=== PATIENT | female | born 1955 | race Caucasian/White ===

== ENCOUNTER 2016-12-12 20:17 | Emergency (ER) | payer BC ==
[2016-12-12] MEDS ORDERED: Morphine 10 MG/ML VIAL ONE ×3 (21:06→23:40)
[2016-12-12] MEDS ORDERED: diphenhydrAMINE 50 MG/ML VIAL ONE (21:06)
--- NOTE | 2016-12-12 21:29 | RAD ---
THREE VIEWS OF THE RIGHT ANKLE 12/12/16 COMPARISON: None. HISTORY: Fall, twisting injury. FINDINGS: There is lateral soft tissue swelling, most prominent distal to the tip of the lateral malleolus. A transverse fracture is seen in the region of the talocalcaneal joint laterally. This may represent t he calcaneus anteriorly in the region of the anterior articular facet of the calcaneus. There is no evidence for dislocation. IMPRESSION: Lateral soft tissue swelling with fracture in the region of the lateral aspect of talus and/or dista l aspect of calcaneus. Recommend orthopedic consultation. A CT examination of the foot/ankle is advi sed as well to evaluate for suspected fractures of the talus and calcaneus. POS: OK
--- NOTE | 2016-12-12 21:31 | RAD ---
THREE VIEWS RIGHT FOOT: 12/12/16 COMPARISON: None. HISTORY: Fall, trauma, pain. FINDINGS: The oblique image demonstrates a fracture which appears to be in the region of the calcaneus, either the middle or the anterior facet, extending into the region of the talocalcaneal joint. There is en thesophyte formation at the origin of the plantar aponeurosis. No evidence for dislocation is seen. IMPRESSION: Intra-articular fracture deformity involving the subtalar joint. Orthopedic consultation and CT exam ination suggested. Code T POS: OK
[2016-12-12] MEDS ORDERED: Ketorolac Tromethamine 30 MG/ML VIAL ONE (21:47)
--- NOTE | 2016-12-12 22:58 | CT ---
CT OF THE RIGHT FOOT 12/12/16 COMPARISON: None. HISTORY: Trauma, pain, assess fracture deformity identified on recent radiograph. TECHNIQUE: Serial axial CT imaging is obtained at 1.25 mm intervals through the right foot and ankle without co ntrast. Coronal and sagittal reformatted imaging obtained. FINDINGS: The imaged aspects of the tibia and fibula are unremarkable. There is no evidence for ankle joint di slocation. There is a comminuted minimally displaced horizontally oriented transverse fracture involving the ta ramila centrally and laterally, at the base of the lateral process, just distal to the articular surfac e for the lateral malleolus. This fracture extends into the talocalcaneal articulation. In addition, there is a comminuted fracture involving the calcaneus laterally, demonstrating a horiz ontal component which extends into the articulation with the cuboid. There is also a component which extends into the anterior aspect of the subtalar joint/talocalcaneal articulation, extending into t he region of the anterior talar articular surface. There is no evidence for discrete fracture of the cuboid, navicular bone, or the cuneiforms. No meta tarsal fracture or phalangeal fracture identified. IMPRESSION: Fracture deformities involving the calcaneus and talus as detailed above. orthopedic consultation is advised. POS: OK
== END 2016-12-13 00:03 | disposition short-term general hospital (02) ==
LOC: MADERS 20:17
DX: S92.141A Displaced dome fracture of right talus, initial encounter for closed fracture (principal); S92.061A Displaced intraarticular fracture of right calcaneus, initial encounter for closed fracture; I25.2 Old myocardial infarction; K21.9 Gastro-esophageal reflux disease without esophagitis; F41.9 Anxiety disorder, unspecified; F32.9 Major depressive disorder, single episode, unspecified; Z87.01 Personal history of pneumonia (recurrent); Z86.14 Personal history of Methicillin resistant Staphylococcus aureus infection; W19.XXXA Unspecified fall, initial encounter; Y93.79 Activity, other specified sports and athletics
CPT/HCPCS: 29515; 96374; 96375; 96376; J1200; J1885; J2270

== ENCOUNTER 2017-02-15 22:17 | Emergency (ER) | payer BC ==
[~2017-02-15 22:17] MED LIST: Dextrose 5 %-0.45 % NaCl 1000 ml Bag ONE
[2017-02-15] MEDS ORDERED: Lorazepam 2 MG/ML VIAL ONE (22:48)
[2017-02-15] MEDS ORDERED: Multivit, Adult Inj 10 ML VIAL ONE (22:48)
[2017-02-15] MEDS ORDERED: Ondansetron HCl/PF 4 MG/2 ML Vial ONE (22:48)
[2017-02-15] MEDS ORDERED: Thiamine HCl 200 MG/2 ML VIAL ONE (22:48)
[2017-02-15] MEDS ORDERED: Ketorolac Tromethamine 30 MG/ML VIAL ONE (22:48)
[2017-02-16 00:26] LABS: Hemoglobin 10.9 g/dL (12.0-16.0); Mean Corpuscular Volume 97.4 fL (81.0-99.0); Red Blood Cell (RBC) Count 3.39 mill/uL (4.20-5.40); White Blood Cell (WBC) Count 6.6 thou/uL (4.8-10.8)
[2017-02-16 00:27] LABS: #Eosinphils 0.1 thou/uL (0.0-0.7); #Monocytes 0.5 thou/uL (0.11-0.59); %Basophils 0.7 % (0.0-1.0); %Eosinophils 1.1 % (0.0-10.0); %Lymphocytes 30.2 % (21.0-51.0); %Monocytes 7.1 % (0.0-10.0); %Neutrophils 60.9 % (42.0-75.0); Manual Diff?? NO; Mean Corpuscular HGB CONC 32.9 g/dL (32.0-36.0); Mean Corpuscular Hemoglobin 32.1 pg (27.0-31.0); Mean Platelet Volume 7.9 fL (7.4-10.4); Platelet Count 161 thou/uL (130-400); RBC Distribution Width 14.1 % (11.5-14.5)
[2017-02-16 00:46] LABS: ALT (SGPT) 15 U/L (8-55); AST (SGOT) 14 U/L (5-34); Albumin 3.2 g/dL (3.5-5.0); Alkaline Phosphatase 198 U/L (40-150); Anion Gap 14 mmol/L (10-20); BUN (Urea Nitrogen) 14 mg/dL (9.8-20.1); Bilirubin, Total 0.2 mg/dL (0.2-1.2); CK (CPK) 26 U/L (29-168); Calc. Creatinine Clearance 0 mL/min (70-130); Calcium 7.8 mg/dL (7.8-10.44); Carbon Dioxide 19 mmol/L (22-29); Chloride 110 mmol/L (98-107); Estimated GFR-MDRD 78; Globulin 2.1 g/dL (2.4-3.5); Glucose 324 mg/dL (70-105); Potassium 3.5 mmol/L (3.5-5.1); Protein, Total 5.3 g/dL (6.0-8.3); Sodium 139 mmol/L (136-145)
== END 2017-02-16 02:30 | disposition home or self-care (01) ==
LOC: MADERS 22:17
DX: M62.838 Other muscle spasm (principal); I25.2 Old myocardial infarction; F41.9 Anxiety disorder, unspecified; F32.9 Major depressive disorder, single episode, unspecified; K21.9 Gastro-esophageal reflux disease without esophagitis
CPT/HCPCS: 36415; 80053; 82550; 83880; 85025; 93005; 96365; 96375; J1885; J2060; J2405; J3411; J7042

== ENCOUNTER 2019-02-09 11:53 | Emergency (ER) | payer BC | END 2019-02-09 13:09 | disposition home or self-care (01) | LOC: MADERS 11:53 | DX: J11.1 Influenza due to unidentified influenza virus with other respiratory manifestations (principal); I25.2 Old myocardial infarction; K21.9 Gastro-esophageal reflux disease without esophagitis; F32.9 Major depressive disorder, single episode, unspecified; F41.9 Anxiety disorder, unspecified; F43.10 Post-traumatic stress disorder, unspecified | CPT/HCPCS: 99283 ==

== ENCOUNTER 2020-10-18 16:18 | Emergency (ER) | payer BC | END 2020-10-18 18:03 | disposition home or self-care (01) | LOC: MADERS 16:18 | DX: U07.1 COVID-19 (principal); I25.2 Old myocardial infarction; K21.9 Gastro-esophageal reflux disease without esophagitis; Z79.899 Other long term (current) drug therapy | CPT/HCPCS: 99283 ==

== ENCOUNTER 2020-11-18 12:28 | Emergency (ER) | payer BC ==
[2020-11-18] MEDS ORDERED: Gabapentin 100 MG CAP ONE (12:49)
[2020-11-18] MEDS ORDERED: Acetaminophen 500 MG TAB ONE (12:49)
== END 2020-11-18 12:55 | disposition home or self-care (01) ==
LOC: MADERS 12:28
DX: M79.671 Pain in right foot (principal); M79.672 Pain in left foot; I25.2 Old myocardial infarction
CPT/HCPCS: 99283

== ENCOUNTER 2021-05-29 08:03 | Emergency (ER) | payer BC ==
[2021-05-29] MEDS ORDERED: HYDROcodone/Acetaminophen 10/325 mg Tablet ONE (09:32)
== END 2021-05-29 09:43 | disposition home or self-care (01) ==
LOC: MADERS 08:03
DX: S82.831A Other fracture of upper and lower end of right fibula, initial encounter for closed fracture (principal); I25.2 Old myocardial infarction; K21.9 Gastro-esophageal reflux disease without esophagitis; W54.1XXA Struck by dog, initial encounter

== ENCOUNTER 2021-06-23 10:29 | Emergency (ER) | payer BC ==
[2021-06-23 11:13] LABS: INR-International Normal Ratio 0.9; Prothrombin Time 12.7 sec (12.0-14.7)
[2021-06-23 11:14] LABS: PTT 31.3 sec (22.9-36.1)
[2021-06-23 11:16] LABS: Hypochromia SLIGHT = 6-15 cells (100X) (0-5/hpf); Lymphocytes 24 % (21-51); MDiff Complete? YES; Mean Corpuscular HGB CONC 31.9 g/dL (32.0-36.0); Mean Corpuscular Hemoglobin 31.3 pg (27.0-31.0); Mean Corpuscular Volume 98.2 fL (78.0-98.0); Mean Platelet Volume 9.4 fL (7.4-10.4); Monocytes 9 % (0-10); Neutrophil 67 % (42-75); Platelet Count 227 thou/uL (130-400); Platelet Morphology Comment Appears Adequate; RBC Distribution Width 12.9 % (11.5-14.5); Red Blood Cell (RBC) Count 3.84 mill/uL (4.20-5.40); White Blood Cell (WBC) Count 7.9 thou/uL (4.8-10.8)
[2021-06-23] MEDS ORDERED: diphenhydrAMINE 50 MG/ML VIAL ONE (11:20)
[2021-06-23] MEDS ORDERED: methylPREDNISolone Sod Succ/PF 125 MG/2 ML VIAL ONE (11:20)
[2021-06-23] MEDS ORDERED: Famotidine/PF 20 mg/2ml Vial ONE (11:20)
[2021-06-23 11:28] LABS: ALT (SGPT) 11 U/L (8-55); AST (SGOT) 19 U/L (5-34); Albumin 4.1 g/dL (3.4-4.8); Alkaline Phosphatase 210 U/L (40-110); Anion Gap 17 mmol/L (10-20); BUN (Urea Nitrogen) 13 mg/dL (9.8-20.1); Bilirubin, Total 0.3 mg/dL (0.2-1.2); Calc. Creatinine Clearance 0 mL/min (70-130); Calcium 8.7 mg/dL (7.8-10.44); Carbon Dioxide 20 mmol/L (23-31); Chloride 109 mmol/L (98-107); Globulin 2.4 g/dL (2.4-3.5); Glucose 111 mg/dL (80-115); Potassium 3.9 mmol/L (3.5-5.1); Protein, Total 6.5 g/dL (5.8-8.1); Sodium 142 mmol/L (136-145)
[2021-06-23 11:53] LABS: CKMB 1.9 ng/mL (0-6.6)
== END 2021-06-23 11:33 | disposition short-term general hospital (02) ==
LOC: MADERS 10:29
DX: R53.1 Weakness (principal); I25.2 Old myocardial infarction; K21.9 Gastro-esophageal reflux disease without esophagitis
CPT/HCPCS: 51702; 70450; 80053; 82553; 84484; 85025; 85610; 85730; 93005; 96374; 96375; J1200; J2930; S0028

== ENCOUNTER 2022-03-28 00:40 | Emergency (ER) | payer BC, MEDICARE ==
[2022-03-28 01:42] LABS: #Basophils 0.1 thou/uL (0.0-0.2); #Eosinphils 0.1 thou/uL (0.0-0.7); #Lymphocytes 2.1 thou/uL (1.20-3.40); #Monocytes 0.6 thou/uL (0.11-0.59); #Neutrophils 2.9 thou/uL (1.40-6.50); %Basophils 1.1 % (0.0-1.0); %Lymphocytes 36.6 % (21.0-51.0); %Monocytes 9.7 % (0.0-10.0); %Neutrophils 50.6 % (42.0-75.0); Hemoglobin 11.5 g/dL (12.0-16.0); Mean Corpuscular HGB CONC 33.5 g/dL (32.0-36.0); Mean Corpuscular Hemoglobin 32.1 pg (27.0-31.0); Mean Corpuscular Volume 95.7 fl (78.0-98.0); Mean Platelet Volume 8.3 fL (7.4-10.4); Platelet Count 167 10x3/uL (130-400); RBC Distribution Width 11.1 % (11.5-14.5); Red Blood Cell (RBC) Count 3.59 mill/uL (4.20-5.40); White Blood Cell (WBC) Count 5.8 10x3/uL (4.8-10.8)
[2022-03-28 01:52] LABS: Bilirubin Negative (Negative); Blood, Urine Negative (Negative); Clarity Clear (Clear); Glucose, Urine (Dipstick) Negative (Negative); Ketone, Urine Negative (Negative); Leukocyte Negative (Negative); Nitrite Negative (Negative); Protein, Urine (Dipstick) Negative (Neg-Trace); Urobilinogen 0.2 mg/dL (Less than 2)
[2022-03-28 01:55] LABS: Anion Gap 14 mmol/L (10-20); BUN (Urea Nitrogen) 20 mg/dL (9.8-20.1); Calc. Creatinine Clearance 0 mL/min (70-130); Calcium 9.3 mg/dL (7.8-10.44); Carbon Dioxide 26 mmol/L (23-31); Chloride 103 mmol/L (98-107); Estimated GFR 88; Glucose 74 mg/dL (80-115); Potassium 4.3 mmol/L (3.5-5.1); Sodium 139 mmol/L (136-145)
== END 2022-03-28 03:05 | disposition home or self-care (01) ==
LOC: MADERS 00:40
DX: R33.9 Retention of urine, unspecified (principal); K21.9 Gastro-esophageal reflux disease without esophagitis
CPT/HCPCS: 36416; 51702; 80048; 81003; 83605; 85025; 87040; 87086

== ENCOUNTER 2022-04-05 16:31 | Emergency (ER) | payer BC, MEDICARE ==
[2022-04-05 17:31] LABS: Bilirubin Negative (Negative); Blood, Urine Moderate (Negative); Glucose, Urine (Dipstick) Negative (Negative); Ketone, Urine Negative (Negative); Leukocyte Moderate (Negative); Nitrite Positive (Negative); Protein, Urine (Dipstick) Negative (Neg-Trace); Urobilinogen 0.2 mg/dL (Less than 2)
[2022-04-05 17:34] LABS: Clarity Hazy (Clear)
[2022-04-05 17:41] LABS: Bacteria/HPF 1+ HPF (None Seen); Squamous Epithelial 0-3 HPF (0-3); WBC/HPF 21-50 HPF (0-3)
[2022-04-05] MEDS ORDERED: cefTRIAXone\\ROCEPHIN 1 GM VIAL ONE (18:39)
[2022-04-05] MEDS ORDERED: Lidocaine 1% PF 5 ML VIAL ONE (18:39)
== END 2022-04-05 19:09 | disposition home or self-care (01) ==
LOC: MADERS 16:31
DX: N39.0 Urinary tract infection, site not specified (principal); K21.9 Gastro-esophageal reflux disease without esophagitis
CPT/HCPCS: 51702; 81003; 81015; 87077; 87086; 87186; 96372; J0696

== ENCOUNTER 2022-04-10 15:04 | Emergency (ER) | payer BC, MEDICARE ==
[2022-04-10] MEDS ORDERED: HYDROcodone/Acetaminophen 10/325 mg Tablet ONE (16:07)
[2022-04-10 16:44] LABS: #Basophils 0.1 thou/uL (0.0-0.2); #Eosinphils 0.1 thou/uL (0.0-0.7); #Lymphocytes 2.6 thou/uL (1.20-3.40); #Monocytes 0.4 thou/uL (0.11-0.59); #Neutrophils 4.1 thou/uL (1.40-6.50); %Eosinophils 1.6 % (0.0-10.0); %Lymphocytes 35.4 % (21.0-51.0); Mean Corpuscular Hemoglobin 32.3 pg (27.0-31.0); Mean Corpuscular Volume 95.1 fl (78.0-98.0); Mean Platelet Volume 7.2 fL (7.4-10.4); Platelet Count 242 10x3/uL (130-400); RBC Distribution Width 11.5 % (11.5-14.5); Red Blood Cell (RBC) Count 3.41 mill/uL (4.20-5.40); White Blood Cell (WBC) Count 7.2 10x3/uL (4.8-10.8)
[2022-04-10 17:01] LABS: ALT (SGPT) 22 U/L (8-55); AST (SGOT) 19 U/L (5-34); Albumin 3.9 g/dL (3.4-4.8); Alkaline Phosphatase 162 U/L (40-110); Anion Gap 12 mmol/L (10-20); BUN (Urea Nitrogen) 16 mg/dL (9.8-20.1); Bilirubin, Total 0.2 mg/dL (0.2-1.2); Calc. Creatinine Clearance 0 mL/min (70-130); Calcium 8.8 mg/dL (7.8-10.44); Carbon Dioxide 25 mmol/L (23-31); Chloride 108 mmol/L (98-107); Estimated GFR 82; Globulin 2.2 g/dL (2.4-3.5); Glucose 89 mg/dL (80-115); Lipase 22 U/L (8-78); Protein, Total 6.1 g/dL (5.8-8.1); Sodium 141 mmol/L (136-145)
[2022-04-10 17:34] LABS: Bilirubin Negative (Negative); Blood, Urine Large (Negative); Glucose, Urine (Dipstick) 100 mg/dL (Negative); Ketone, Urine Negative (Negative); Leukocyte Trace (Negative); Nitrite Positive (Negative); Protein, Urine (Dipstick) 30 mg/dL (Neg-Trace); pH, Urine 5.5 (5.0-9.0)
[2022-04-10 17:40] LABS: Bacteria/HPF 1+ HPF (None Seen); Clarity Slightly Cloudy (Clear); RBC/HPF Greater than 50 HPF (0-3); Squamous Epithelial 0-3 HPF (0-3)
[2022-04-10] MEDS ORDERED: Fentanyl 100 MCG/2 ML VIAL ONE (18:32)
[2022-04-10] MEDS ORDERED: Sodium Chloride 0.9% 100 ML ONE (18:32)
[2022-04-10] MEDS ORDERED: cefTRIAXone\\ROCEPHIN 2 GM VIAL ONE (18:32)
== END 2022-04-10 18:57 | disposition home or self-care (01) ==
LOC: MADERS 15:04
DX: N39.0 Urinary tract infection, site not specified (principal); K21.9 Gastro-esophageal reflux disease without esophagitis
CPT/HCPCS: 80053; 81003; 81015; 83605; 83690; 85025; 87086; 96374; 96375; J0696; J3010; J3490

== ENCOUNTER 2022-05-23 08:22 | Emergency (ER) | payer BC, MEDICARE | END 2022-05-23 09:35 | disposition home or self-care (01) | LOC: MADERS 08:22 | DX: S62.511A Displaced fracture of proximal phalanx of right thumb, initial encounter for closed fracture (principal); K21.9 Gastro-esophageal reflux disease without esophagitis; N39.0 Urinary tract infection, site not specified; W23.0XXA Caught, crushed, jammed, or pinched between moving objects, initial encounter ==

== ENCOUNTER 2022-10-15 21:46 | Emergency (ER) | payer BC, MEDICARE, OTHER ==
[2022-10-15] MEDS ORDERED: Lidocaine 4% Cream 5 GM TUBE w/ Tegaderm ONE (22:36)
[2022-10-15] MEDS ORDERED: Morphine 4 MG/ML VIAL ONE (22:53)
[2022-10-15] MEDS ORDERED: Sodium Chloride 0.9% 1,000 ML ONE (22:53)
[2022-10-15 23:10] LABS: #Eosinphils 0.1 thou/uL (0.0-0.7); #Monocytes 0.6 thou/uL (0.11-0.59); #Neutrophils 5.9 thou/uL (1.40-6.50); %Basophils 0.5 % (0.0-1.0); %Eosinophils 0.9 % (0.0-10.0); %Lymphocytes 23.3 % (21.0-51.0); %Neutrophils 68.3 % (42.0-75.0); Hematocrit 29.7 % (36.0-47.0); Hemoglobin 9.7 g/dL (12.0-16.0); Mean Corpuscular HGB CONC 32.7 g/dL (32.0-36.0); Mean Corpuscular Hemoglobin 32.6 pg (27.0-31.0); Mean Corpuscular Volume 99.8 fl (78.0-98.0); Mean Platelet Volume 9.1 fL (7.4-10.4); Platelet Count 163 10x3/uL (130-400); RBC Distribution Width 12.7 % (11.5-14.5); Red Blood Cell (RBC) Count 2.97 mill/uL (4.20-5.40); White Blood Cell (WBC) Count 8.7 10x3/uL (4.8-10.8)
[2022-10-15 23:24] LABS: ALT (SGPT) 17 U/L (8-55); AST (SGOT) 25 U/L (5-34); Albumin 3.4 g/dL (3.4-4.8); Alkaline Phosphatase 140 U/L (40-110); Anion Gap 12 mmol/L (10-20); BUN (Urea Nitrogen) 11 mg/dL (9.8-20.1); Bilirubin, Total Less than 0.2 mg/dL (0.2-1.2); Calc. Creatinine Clearance 0 mL/min (70-130); Carbon Dioxide 21 mmol/L (23-31); Chloride 112 mmol/L (98-107); Estimated GFR 98; Globulin 2.1 g/dL (2.4-3.5); Glucose 66 mg/dL (80-115); Protein, Total 5.5 g/dL (5.8-8.1); Sodium 141 mmol/L (136-145)
[2022-10-15 23:30] LABS: Troponin I 0.016 ng/mL (< 0.028)
[2022-10-15 23:49] LABS: Bilirubin Negative (Negative); Blood, Urine Negative (Negative); CAUTI Indications for Culture Acute Hematuria; Clarity Clear (Clear); Glucose, Urine (Dipstick) Negative (Negative); Ketone, Urine Negative (Negative); Leukocyte Negative (Negative); Nitrite Negative (Negative); Protein, Urine (Dipstick) Negative (Neg-Trace); RBC/HPF None Seen HPF (0-3); Squamous Epithelial 0-3 HPF (0-3); Urobilinogen 0.2 mg/dL (Less than 2); WBC/HPF None Seen HPF (0-3)
[2022-10-15 23:50] LABS: Urine Culture Reflex No No
[2022-10-16] MEDS ORDERED: Boostrix 0.5 ML (Tdap) VIAL (>/=7 yrs of age) ONE (00:51)
[2022-10-16] MEDS ORDERED: HYDROcodone/Acetaminophen 5/325 mg Tablet ONE (00:51)
== END 2022-10-16 01:22 | disposition home or self-care (01) ==
LOC: MADERS 21:46
DX: S06.9X9A Unspecified intracranial injury with loss of consciousness of unspecified duration, initial encounter (principal); S05.42XA Penetrating wound of orbit with or without foreign body, left eye, initial encounter; R33.9 Retention of urine, unspecified; K21.9 Gastro-esophageal reflux disease without esophagitis; Z79.899 Other long term (current) drug therapy; Z23 Encounter for immunization; W19.XXXA Unspecified fall, initial encounter
CPT/HCPCS: 51702; 51798; 70450; 70486; 71045; 72125; 80053; 81001; 84484; 85025; 90471; 90715; 93005; 96374; J2270; J7050

== ENCOUNTER 2022-11-11 11:13 | Emergency (ER) | payer BC, MEDICARE ==
[2022-11-11] MEDS ORDERED: Morphine 4 MG/ML VIAL ONE (11:42)
[2022-11-11] MEDS ORDERED: diphenhydrAMINE 50 MG/ML VIAL ONE (11:42)
[2022-11-11 12:03] LABS: #Basophils 0.1 thou/uL (0.0-0.2); #Eosinphils 0.1 thou/uL (0.0-0.7); #Lymphocytes 2.4 thou/uL (1.20-3.40); #Monocytes 0.5 thou/uL (0.11-0.59); %Eosinophils 1.4 % (0.0-10.0); %Lymphocytes 30.1 % (21.0-51.0); %Monocytes 5.8 % (0.0-10.0); %Neutrophils 61.8 % (42.0-75.0); Hematocrit 35.5 % (36.0-47.0); Hemoglobin 11.2 g/dL (12.0-16.0); Mean Corpuscular HGB CONC 31.6 g/dL (32.0-36.0); Mean Corpuscular Hemoglobin 31.3 pg (27.0-31.0); Mean Platelet Volume 8.8 fL (7.4-10.4); Platelet Count 184 10x3/uL (130-400); RBC Distribution Width 12.9 % (11.5-14.5); Red Blood Cell (RBC) Count 3.59 mill/uL (4.20-5.40); White Blood Cell (WBC) Count 8.1 10x3/uL (4.8-10.8)
[2022-11-11 12:22] LABS: ALT (SGPT) 19 U/L (8-55); AST (SGOT) 23 U/L (5-34); Albumin 3.7 g/dL (3.4-4.8); Alkaline Phosphatase 167 U/L (40-110); Anion Gap 11 mmol/L (10-20); BUN (Urea Nitrogen) 12 mg/dL (9.8-20.1); Bilirubin, Total 0.2 mg/dL (0.2-1.2); Calc. Creatinine Clearance 0 mL/min (70-130); Calcium 8.4 mg/dL (7.8-10.44); Carbon Dioxide 26 mmol/L (23-31); Chloride 108 mmol/L (98-107); Estimated GFR 96; Globulin 2.2 g/dL (2.4-3.5); Glucose 88 mg/dL (80-115); Potassium 4.1 mmol/L (3.5-5.1); Protein, Total 5.9 g/dL (5.8-8.1); Sodium 141 mmol/L (136-145)
[2022-11-11 12:23] LABS: Troponin I Less than 0.010 ng/mL (< 0.028)
[2022-11-11] MEDS ORDERED: Methocarbamol 500 MG TAB ONE (13:06)
[2022-11-11] MEDS ORDERED: Thiamine HCl 200 MG/2 ML VIAL ONE (13:09)
[2022-11-11] MEDS ORDERED: Midazolam HCl 2 mg/2 ml Vial ONE (13:09)
[2022-11-11] MEDS ORDERED: Morphine 2 MG/ML VIAL ONE (14:07)
== END 2022-11-11 14:50 | disposition home or self-care (01) ==
LOC: MADERS 11:13
DX: M62.838 Other muscle spasm (principal); R07.9 Chest pain, unspecified; K21.9 Gastro-esophageal reflux disease without esophagitis; Z79.899 Other long term (current) drug therapy
CPT/HCPCS: 71045; 80053; 83880; 84484; 85025; 85379; 93005; 94760; 96374; 96375; 96376; J1200; J2250; J2270; J2272; J3411

== ENCOUNTER 2023-02-05 05:01 | Emergency (ER) | payer OTHER, BC, MEDICARE ==
[2023-02-05] MEDS ORDERED: traMADol HCl 50 MG TAB ONE (05:19)
== END 2023-02-05 05:34 | disposition home or self-care (01) ==
LOC: MADERS 05:01
DX: S73.101A Unspecified sprain of right hip, initial encounter (principal); W01.0XXA Fall on same level from slipping, tripping and stumbling without subsequent striking against object, initial encounter

== ENCOUNTER 2024-02-06 14:21 | Emergency (ER) | payer BC, MEDICARE | END 2024-02-06 16:24 | disposition left against medical advice (07) | LOC: MADERS 14:21 | DX: Z53.21 Procedure and treatment not carried out due to patient leaving prior to being seen by health care provider (principal) ==

== ENCOUNTER 2024-09-12 08:17 | Outpatient (CLI) | payer BC, MEDICARE ==
[2024-09-12 09:03] LABS: #Basophils 0.1 thou/uL (0.0-0.2); #Eosinophils 0.2 thou/uL (0.0-0.7); #Lymphocytes 1.8 thou/uL (1.20-3.40); #Monocytes 0.3 thou/uL (0.11-0.59); #Neutrophils 3.3 thou/uL (1.40-6.50); %Basophils 0.9 % (0.0-1.0); %Eosinophils 2.9 % (0.0-10.0); %Lymphocytes 32.3 % (21.0-51.0); %Monocytes 5.9 % (0.0-10.0); %Neutrophils 58.0 % (42.0-75.0); Hematocrit 37.1 % (36.0-47.0); Hemoglobin 12.0 g/dL (12.0-16.0); Mean Corpuscular Hemoglobin 31.2 pg (27.0-31.0); Mean Corpuscular Volume 96.5 fl (78.0-98.0); Platelet Count 217 10x3/uL (130-400); Red Blood Cell (RBC) Count 3.84 mill/uL (4.20-5.40); White Blood Cell (WBC) Count 5.6 10x3/uL (4.8-10.8)
[2024-09-12 09:17] LABS: ALT (SGPT) 23 U/L (Less than 34); AST (SGOT) 31 U/L (11-34); Albumin 3.9 g/dL (3.1-4.5); Alkaline Phosphatase 148 U/L (40-110); Anion Gap 16 mmol/L (10-20); BUN (Urea Nitrogen) 17 mg/dL (9.8-20.1); Bilirubin, Direct 0.2 mg/dL (0.1-0.3); Bilirubin, Total 0.5 mg/dL (0.3-1.2); Calc. Creatinine Clearance 0 mL/min (70-130); Calcium 8.7 mg/dL (7.8-10.44); Carbon Dioxide 25 mmol/L (23-31); Cardiac Risk 3.0 (Less than 4.5); Chloride 105 mmol/L (98-107); Cholesterol 203 mg/dl (< 200 Desired); Glucose 90 mg/dL (80-115); HDL Cholesterol 68 mg/dL (>60 Neg Risk); LDL Cholesterol, Calculated 118 mg/dL; Potassium 4.2 mmol/L (3.5-5.1); Sodium 142 mmol/L (136-145); Triglycerides 86 mg/dL (Less than 150)
[2024-09-12 16:57] LABS: Iron 146 ug/dL (50-170); Iron Binding Capacity, Total 280 mcg/dL (265-497)
[2024-09-12 17:25] LABS: Ferritin 29.79 ng/mL (10-291); Free T4 (Free Thyroxine) 0.95 ng/dL (0.70-1.48); Vitamin B12 354.0 pg/mL (211-911)
[2024-09-12 18:38] LABS: Vitamin D, 25 Hydroxy 37.4 ng/ml (> 30.0)
== END 2024-09-12 08:18 | disposition home or self-care (01) ==
LOC: MADLAB 08:17
PROVIDERS: ATTEND Internal Medicine
DX: I10 Essential (primary) hypertension (principal); D51.9 Vitamin B12 deficiency anemia, unspecified; E55.9 Vitamin D deficiency, unspecified; D52.9 Folate deficiency anemia, unspecified; E11.9 Type 2 diabetes mellitus without complications; E61.1 Iron deficiency; E03.9 Hypothyroidism, unspecified; R79.89 Other specified abnormal findings of blood chemistry
CPT/HCPCS: 36415; 80048; 80061; 80076; 82306; 82607; 82728; 82746; 83036; 83540; 83550; 84439; 84443; 85025

== ENCOUNTER 2024-12-26 10:03 | Outpatient (CLI) | payer BC, MEDICARE ==
[2024-12-26 10:37] LABS: #Basophils 0.1 thou/uL (0.0-0.2); #Eosinophils 0.2 thou/uL (0.0-0.7); #Lymphocytes 2.2 thou/uL (1.20-3.40); #Monocytes 0.5 thou/uL (0.11-0.59); #Neutrophils 5.1 thou/uL (1.40-6.50); %Basophils 1.3 % (0.0-1.0); %Eosinophils 2.7 % (0.0-10.0); %Lymphocytes 26.9 % (21.0-51.0); %Monocytes 6.4 % (0.0-10.0); %Neutrophils 62.8 % (42.0-75.0); Hematocrit 41.0 % (36.0-47.0); Hemoglobin 12.8 g/dL (12.0-16.0); Mean Corpuscular Hemoglobin 31.0 pg (27.0-31.0); Mean Corpuscular Volume 99.1 fl (78.0-98.0); Platelet Count 237 10x3/uL (130-400); Red Blood Cell (RBC) Count 4.14 mill/uL (4.20-5.40); White Blood Cell (WBC) Count 8.1 10x3/uL (4.8-10.8)
[2024-12-26 10:49] LABS: ALT (SGPT) 24 U/L (Less than 34); AST (SGOT) 27 U/L (11-34); Albumin 4.1 g/dL (3.1-4.5); Alkaline Phosphatase 165 U/L (40-110); Anion Gap 14 mmol/L (10-20); BUN (Urea Nitrogen) 19 mg/dL (9.8-20.1); Bilirubin, Total 0.4 mg/dL (0.3-1.2); Calc. Creatinine Clearance 0 mL/min (70-130); Calcium 8.9 mg/dL (7.8-10.44); Carbon Dioxide 24 mmol/L (23-31); Chloride 109 mmol/L (98-107); Globulin 2.7 g/dL (2.4-3.5); Glucose 101 mg/dL (80-115); Potassium 3.9 mmol/L (3.5-5.1); Sodium 143 mmol/L (136-145)
== END 2024-12-26 10:04 | disposition home or self-care (01) ==
LOC: MADLAB 10:03
PROVIDERS: ATTEND Psychiatry & Neurology Neurology
DX: R25.1 Tremor, unspecified (principal)
CPT/HCPCS: 36415; 80053; 82140; 82390; 82525; 84155; 84165; 84443; 85025; 86334

== ENCOUNTER 2025-01-30 09:57 | Emergency (ER) | payer BC, MEDICARE | END 2025-01-30 10:56 | disposition home or self-care (01) | LOC: MADERS 09:57 | DX: J06.9 Acute upper respiratory infection, unspecified (principal); B97.89 Other viral agents as the cause of diseases classified elsewhere; I25.2 Old myocardial infarction | CPT/HCPCS: 99283 ==